=== PATIENT | female | born 1985 | race Caucasian/White ===

== ENCOUNTER → 2017-07-15 16:45 | Outpatient (CLI) | payer OTHER, SELFPAY ==
[2017-07-15 17:51] LABS: Hematocrit 35.1 % (37-47); Hemoglobin 11.8 g/dl (12.0-15.0); Mean Corp Hgb Conc 33.6 g/gl (32-36); Mean Corpuscular Hgb 32.4 pg (27.0-32.0); Mean Corpuscular Volume 96.4 fL (81-99); Mean Platelet Vol. 10.7 fl (6.2-12.0); Platelet Count 188 K/mm3 (150-450); RBC Distribution Width CV 13.3 % (11.6-14.6); RBC Distribution Width SD 46.3 fl (35.1-43.9); Red Blood Count 3.64 M/mm3 (4.2-5.4)
[2017-07-15 17:56] LABS: Scan Indicated on CBC? Y/N NO
[2017-07-15 19:13] LABS: Glucose Challenge Gest 1H 50g 90 mg/dL (70-140)
== END ==
PROVIDERS: Visit Provider Obstetrics & Gynecology
DX: Z34.82 Encounter for supervision of other normal pregnancy, second trimester (principal); Z3A.00 Weeks of gestation of pregnancy not specified
CPT/HCPCS: 82950; 85027

== ENCOUNTER → 2017-09-17 16:08 | Outpatient (CLI) | payer OTHER, SELFPAY ==
[2017-09-17 18:36] LABS: Group B Strep DNA By PCR Negative (Negative); Internal Control PASS; Probe Check PASS; Specimen Processing Control PASS
== END ==
PROVIDERS: Visit Provider Obstetrics & Gynecology
DX: Z36.85 Encounter for antenatal screening for Streptococcus B (principal)
CPT/HCPCS: 87081; 87653

== ENCOUNTER → 2017-10-08 09:30 | Outpatient (CLI) | payer OTHER, SELFPAY ==
--- NOTE | 2017-10-08 09:30 | DT_ITS ---
This patient was seen during an EMR downtime October 05, 2017 - October 12, 2017. This patient may have a combination of paper and electronic documentation or all paper documentation. All documentation is viewable within the e-chart portion of [facility] for each patient visit.
[2017-10-13 04:32] LABS: ROM Internal Control Test YES-OK TO RESULT pt. (Internal QC); ROM Patient Test Negative (Negative)
== END ==
PROVIDERS: Visit Provider Obstetrics & Gynecology
DX: Z34.83 Encounter for supervision of other normal pregnancy, third trimester (principal)
CPT/HCPCS: 84112

== ENCOUNTER 2017-10-16 09:00 | Inpatient (IN) | payer OTHER, SELFPAY ==
[2017-10-16 09:55] LABS: ROM Internal Control Test YES-OK TO RESULT pt. (Internal QC)
[2017-10-16 09:56] LABS: ROM Patient Test POSITIVE (Negative)
[2017-10-16 10:35] VITALS: BMI 33.7
[2017-10-16] MEDS: Lactated Ringers 1,000 ML 50 ML IV ×2 (12:15→22:17)
[2017-10-16 12:50] LABS: Hematocrit 37.6 % (37-47); Hemoglobin 13.1 g/dl (12.0-15.0); Mean Corp Hgb Conc 34.8 g/gl (32-36); Mean Corpuscular Hgb 32.4 pg (27.0-32.0); Mean Corpuscular Volume 93.1 fL (81-99); Mean Platelet Vol. 11.6 fl (6.2-12.0); Platelet Count 132 K/mm3 (150-450); RBC Distribution Width CV 12.8 % (11.6-14.6); RBC Distribution Width SD 43.2 fl (35.1-43.9); Red Blood Count 4.04 M/mm3 (4.2-5.4); White Blood Count 8.6 K/mm3 (4.4-11.0)
[2017-10-16 12:55] LABS: Scan Indicated on CBC? Y/N NO
[2017-10-16] MEDS: Oxytocin 30 units/NS 500 ml 30 UNITS/500 ML IV.SOLN IV (13:40)
--- NOTE | 2017-10-16 16:57 | PCM.PN.BLA ---
Progress Note LABOR PROGRESS NOTE 41 wk SROM this am approx 8:30 Sitting up in rocking chair feeling some mild menstrual cramping. AVSS Pitocin at 6 mIU/min EFM 130-140s avg variability accels. Category I tracing UCs q 2-4 mins CX deferred. last check /-3 A/P: 41 wk SPROM. Pitocin induction after SROM. Postdates. Continue induction watch progress, descent
--- NOTE | 2017-10-16 20:46 | PCM.PN.BLA ---
Progress Note LABOR PROGRESS NOTE Feeling more uncomfortable w/ UCs and having to breathe through them now. AVSS Pitocin at 7 mIU/min EFM 130-140 avg variability. Accels. UCs q 1-5 min with some coupling and spacing CX : 2-3 cm/60/-1 per RN check a few minutes ago A/P: 41 wk SROM. Pitocin induction after SROM. Continue Pitocin, position changes. Watch progress, descent.
[2017-10-16] MEDS: fentaNYL-bupivacaine (epidural) 100 ML BAG EPIDURAL (23:15)
[2017-10-17] MEDS: Lactated Ringers 1,000 ML 50 ML IV ×2 (01:09→05:51)
[2017-10-17] MEDS: fentaNYL-bupivacaine (epidural) 100 ML BAG EPIDURAL (03:42)
--- NOTE | 2017-10-17 03:53 | PCM.PN.BLA ---
Progress Note LABOR PROGRESS NOTE Comfortable with epidural AVSS Pitocin at 7 mIU/min EFM 130-140s mostly , periods of sleep cycles. Intermittent lates, but with accels and reactive strip. Category I tracing UCs q 1-4 mins Scant bloody show at perineum CX: complete with forebag. AROM, clear fluid. Pelvis adequate and AGA A/P: 41 1/7 wk EGA . SROM at approx 0830 am yesterday. Continue labor. Will labor down approx 1 hr and then begin pushing.
[2017-10-17] MEDS: Mag Hydrox/Al Hydrox/Simeth 30 ML UDC PO (05:51)
--- NOTE | 2017-10-17 06:50 | PCM.PN.BLA ---
Progress Note 41 1/7 wk SROM Induction comfortable with epidural AVSS pitocin EFM 130-140s avg variability, accels. UCs with pushing q 2-6 mins CX: C and P A/P: 41 1/7 wk SROM at 0830 am 10/16/17 now complete and pushing. Anticipate
--- NOTE | 2017-10-17 07:54 | PCM.PN.BLA ---
Progress Note Complete since 3:16 am. Pushing since approx 4:20 UCs appear inadequate. A/P: 41 1/7 wk SROM yesterday. C and P Watch for further descent, potential for C/S delivery.
[2017-10-17] MEDS: Oxytocin 30 units/NS 500 ml 30 UNITS/500 ML IV.SOLN 334 UNITS IV (08:58)
--- NOTE | 2017-10-17 09:04 | PCM.OB.VAG ---
Vaginal Delivery Maternal Presentation: Spontaneous Rupture of Membranes 41 wk EGA SROM, unfavorable cervix. Method of Induction: Pitocin Medical Reason for Induction: Premature Rupture of Membranes Amniotic Membrane Rupture Type: Spontaneous - 829 approx 10/16/[address] Rupture of Membrane time: 829 Amniotic Fluid Description: Clear Final JAIDEN: 10/09/17 Final JAIDEN Source: <20 weeks Gestational age: 41 Weeks and 1 Days Date of Procedure: 10/17/17 Pre-Operative Diagnosis: 41 1/7 wk labor Post-Operative Diagnosis: same Surgery/ Procedure Performed: Spontaneous Vaginal Delivery Anesthesiologist: Raquel Mata Type of Anesthesia: Epidural Description of Procedure: of a saucedo viable female over intact perineum. Head delivered MECHELLE. OP and nares bulb suctioned after delivery. No nuchal cord, shoulders delivered easily. Infant to maternal abdomen with spont cry, vigorous. 9/9 apgars. Cord clamped x two and cut. PP EXAM: 2nd deg posterior vaginal, perineal laceration. repaired to hemostatic, intact with 3-0 Vicryl under epidural anesthesia. 1st deg R anterior labal laceration also noted, but hemostatic and not repaired. Placenta delivered by spont expulsion, expression 3V cord, normal appearing, intact with trailing membranes. Pt and tolerated delivery well. To recovery , stable condition EBL 350 cc Ray Al counts correct x two. Presentation: Vertex, MECHELLE Placental Delivery Description: Spontaneous, Expressed Placenta Disposition: [facility] Cord Vessel Description: 3 Vessels Cord Entanglement: None Drain: Kelsey to straight drain Estimated Blood Loss: 350 A gender: Female (1 minute): 9 (5 minute): 9 Episiotomy Description: None Laceration: Midline, Perineal Extension/lac - 1st deg laceration (hemostatic and not repaired) anterior R labia, Vaginal Extension/lac, 2nd degree Medications given after delivery: IV Pitocin Complications: None
--- NOTE | 2017-10-17 09:09 | OP.PCM_ITS ---
Vaginal Delivery Maternal Presentation: Spontaneous Rupture of Membranes 41 wk EGA SROM, unfavorable cervix. Method of Induction: Pitocin Medical Reason for Induction: Premature Rupture of Membranes Amniotic Membrane Rupture Type: Spontaneous - 829 approx 10/16/[address] Rupture of Membrane time: 829 Amniotic Fluid Description: Clear Final JAIDEN: 10/09/17 Final JAIDEN Source: <20 weeks Gestational age: 41 Weeks and 1 Days Date of Procedure: 10/17/17 Pre-Operative Diagnosis: 41 1/7 wk labor Post-Operative Diagnosis: same Surgery/ Procedure Performed: Spontaneous Vaginal Delivery Anesthesiologist: Raquel Mata Type of Anesthesia: Epidural Description of Procedure: of a saucedo viable female over intact perineum. Head delivered MECHELLE. OP and nares bulb suctioned after delivery. No nuchal cord, shoulders delivered easily. Infant to maternal abdomen with spont cry, vigorous. 9/9 apgars. Cord clamped x two and cut. PP EXAM: 2nd deg posterior vaginal, perineal laceration. repaired to hemostatic , intact with 3-0 Vicryl under epidural anesthesia. 1st deg R anterior labal laceration also noted, but hemostatic and not repaired. Placenta delivered by spont expulsion, expression 3V cord, normal appearing, intact with trailing membranes. Pt and infant tolerated delivery well. To recovery , stable condition EBL 350 cc Ray Al counts correct x two. Presentation: Vertex, MECHELLE Placental Delivery Description: Spontaneous, Expressed Placenta Disposition: [facility] Cord Vessel Description: 3 Vessels Cord Entanglement: None Drain: Kelsey to straight drain Estimated Blood Loss: 350 Infant A gender: Female (1 minute): 9 (5 minute): 9 Episiotomy Description: None Laceration: Midline, Perineal Extension/lac - 1st deg laceration (hemostatic and not repaired) anterior R labia, Vaginal Extension/lac, 2nd degree Medications given after delivery: IV Pitocin Complications: None
--- NOTE | 2017-10-17 09:09 | PCM.DCVAG ---
Discharge Diet: No Restrictions Discharge Activity: May Shower, May Take a Tub Bath Return to work on:: 11/30/17 May resume sexual activity in: 4-6 weeks Additional Activity Instructions:: Nothing in the vagina for 4-6 weeks. You may return to work/school in 6 weeks. Additional Instructions: If you experience any of the following, contact your healthcare provider. Bleeding that soaks a pad every hour for 2 hours Fever 100.4 or higher Unrelieved abdominal pain Problems urinating (including inability to urinate or burning while urinating). Visual changes Severe headache Flu-like symptoms Pain or redness in one of both of your breasts Pain, warmth, tenderness or swelling in your legs, especially the calf area Frequent nausea and vomiting Symptoms of depression or anxiety If you experience any of the following, call 911 or go to the nearest Emergency Room. Chest pain Problems breathing Seizure activity Partial or complete paralysis of a body part, slurred speech, weakness or drooping of the face, or a sudden inability to walk or hold your balance Allergies/Adverse Reactions: Allergies amoxicillin Allergy (Verified 10/16/17 11:57) Rash cefaclor [From Ceclor] Allergy (Verified 10/16/17 12:04) Rash erythromycin base Allergy (Verified 10/16/17 11:57) Rash Medications to take at Discharge Ferrous Gluconate 10/16/17 Vitamins 10/16/17 Stool Softener 1 PO DAILY 10/16/17 Please Follow Up With: Denzel Calix MD - [phone] When: Call to make an appointment with your doctor in 6 weeks. Proposed Discharge Date: 10/19/17
--- NOTE | 2017-10-17 09:11 | DCINST_ITS ---
Discharge Diet: No Restrictions Discharge Activity: May Shower, May Take a Tub Bath Return to work on:: 11/30/17 May resume sexual activity in: 4-6 weeks Additional Activity Instructions:: Nothing in the vagina for 4-6 weeks. You may return to work/school in 6 weeks. Additional Instructions: If you experience any of the following, contact your healthcare provider. * Bleeding that soaks a pad every hour for 2 hours * Fever 100.4 or higher * Unrelieved abdominal pain * Problems urinating (including inability to urinate or burning while urinating) . * Visual changes * Severe headache * Flu-like symptoms * Pain or redness in one of both of your breasts * Pain, warmth, tenderness or swelling in your legs, especially the calf area * Frequent nausea and vomiting * Symptoms of depression or anxiety If you experience any of the following, call 911 or go to the nearest Emergency Room. * Chest pain * Problems breathing * Seizure activity * Partial or complete paralysis of a body part, slurred speech, weakness or drooping of the face, or a sudden inability to walk or hold your balance Allergies/Adverse Reactions: Allergies amoxicillin Allergy (Verified 10/16/17 11:57) Rash cefaclor [From Ceclor] Allergy (Verified 10/16/17 12:04) Rash erythromycin base Allergy (Verified 10/16/17 11:57) Rash Medications to take at Discharge Ferrous Gluconate 10/16/17 Vitamins 10/16/17 Stool Softener 1 PO DAILY 10/16/17 Please Follow Up With: Denzel Calix MD - [phone] When: Call to make an appointment with your doctor in 6 weeks. Proposed Discharge Date: 10/19/17
[2017-10-17] MEDS: Oxytocin 30 units/NS 500 ml 30 UNITS/500 ML IV.SOLN 167 UNITS IV (09:30)
[2017-10-17] MEDS: Prenatal Vits Tablet 1 TABLET PO (14:03)
[2017-10-17 14:30] VITALS: BP 107/57; PULSE 88; RESP 18; TEMP 36.3; O2SAT 96
[2017-10-17 16:58] VITALS: BP 103/65; PULSE 86; RESP 16; TEMP 36.3; O2SAT 96
[2017-10-17 20:35] VITALS: BP 105/60; PULSE 89; RESP 16; TEMP 36.6; O2SAT 97
[2017-10-17] MEDS: Naproxen 250 MG Tablet PO (21:40)
[2017-10-18 00:40] VITALS: BP 104/64; PULSE 74; RESP 16; TEMP 36.7
[2017-10-18 05:00] VITALS: BP 119/77; PULSE 84; RESP 16; TEMP 36.8
[2017-10-18 08:00] VITALS: BP 99/60; PULSE 69; RESP 14; TEMP 36.6; O2SAT 98
--- NOTE | 2017-10-18 08:02 | PCM.PN.OB ---
Subjective: PPD#1 Doing well. Some pain and cramping but mostly nipple discomfort. has her own cream to use and had been working with nursing staff re latching and nursing. baby up a lot last night. not nursing well yet. Pain control adequate. - Physical Exam General: Alert, Oriented x3, Cooperative, No apparent distress HEENT: Atraumatic Neck: Supple Abdomen: Soft - Fundus firm NT at inferior to umbilicus Neurological: Cranial nerves II-XII grossly intact Psych/Mental Status: Normal Affect Vital Signs Temp Pulse Resp BP Pulse Ox 98.3 F 84 16 119/77 97 10/18/17 05:00 10/18/17 05:00 10/18/17 05:00 10/18/17 05:00 10/17/17 20:35 Oxygen Delivery Method Room Air Weight: 92.079 kg Body Mass Index (BMI) 33.7 Intake and Output for Last 24 Hours 10/16/17 10/17/17 10/18/17 23:59 23:59 23:59 Intake Total 1893 / 1893 3194 / 3194 Output Total 600 / 600 3900 / 3900 Balance 1293 / 1293 -706 / -706 Medical Necessity - Tobacco Use Smoking Status: Never smoker Assessment/Plan PPD#1 Stable pp. Continue care.
[2017-10-18] MEDS: Naproxen 250 MG Tablet PO (08:59)
[2017-10-18] MEDS: Prenatal Vits Tablet 1 TABLET PO (08:59)
[2017-10-18] MEDS: Acetaminophen 500 MG Tablet 1000 MG PO (14:02)
[2017-10-18] MEDS: Senna/Docusate Sodium 1 Tablet PO (14:03)
[2017-10-18] MEDS: Bisacodyl 10 MG Suppository RECTAL (14:05)
[2017-10-18 14:25] VITALS: BP 103/64; PULSE 66; RESP 14; TEMP 36.7; O2SAT 98
[2017-10-18 19:50] VITALS: BP 110/69; PULSE 91; RESP 16; TEMP 36.7
[2017-10-19 01:15] VITALS: BP 104/62; PULSE 77; RESP 16; TEMP 36.4
--- NOTE | 2017-10-19 07:55 | PCM.PN.OB ---
Subjective: PPD#2 SROM, induction pitocin to Doing well. Breast feeding going much better. Minimal pain. no concerns voiced. Plans to make f/u appt with Dr. Perez at [facility]. Objective: Sitting up in bed, holding sleeping baby. - Physical Exam General: Alert, Oriented x3, Cooperative, No apparent distress HEENT: Atraumatic Neck: Supple Neurological: Cranial nerves II-XII grossly intact Psych/Mental Status: Normal Affect Vital Signs Temp Pulse Resp BP Pulse Ox 97.6 F L 77 16 104/62 98 10/19/17 01:15 10/19/17 01:15 10/19/17 01:15 10/19/17 01:15 10/18/17 14:25 Oxygen Delivery Method Room Air Weight: 92.079 kg Body Mass Index (BMI) 33.7 Intake and Output for Last 24 Hours 10/17/17 10/18/17 10/19/17 23:59 23:59 23:59 Intake Total 3194 / 3194 Output Total 3900 / 3900 Balance -706 / -706 Medical Necessity - Tobacco Use Smoking Status: Never smoker Assessment/Plan PPD#2 Stable pp. Dischg home today. RTO in 6 wk for pp check, with Dr. Calix.
--- NOTE | 2017-10-19 08:01 | PCM.DC.SUM ---
Discharge Date and Diagnosis Date of Admission: 10/16/17 - SROM, unfavorable cervix 41 wk Date of Discharge: 10/19/17 - Same Induction of labor Hospital Course and Treatment Summary of Care Provided: The patient is a 32 year old female at 41 wk EGA presents with SROM 8 am and unfavorable cervix . Admitted for pitocin induction. Epidural placed per pt request. Progressed to complete and pushing for a little more than 4 hrs. Delivered saucedo viable female course uneventful. Home on PPD#2 Discharge Diet: No Restrictions Discharge Activity: May Shower, May Take a Tub Bath Return to work on:: 11/30/17 May resume sexual activity in: 4-6 weeks Additional Activity Instructions:: Nothing in the vagina for 4-6 weeks. You may return to work/school in 6 weeks. Home Medications: Medications to take at Discharge Ferrous Gluconate 10/16/17 Vitamins 10/16/17 Stool Softener 1 PO DAILY 10/16/17 Other Amb Orders: Electric breast pump Time Frame: 1 Year, Location: None Selected Please Follow Up With: Denzel Calix MD - [phone] Medical Necessity - Tobacco Use Smoking Status: Never smoker Meaningful Use Info Meaningful Use Diagnoses (Choose all that apply): None applicable
[2017-10-19] MEDS: Senna/Docusate Sodium 1 Tablet PO (11:04)
[2017-10-19 11:05] VITALS: BP 102/61; PULSE 84; RESP 20; TEMP 36.9; O2SAT 95
[2017-10-19] MEDS: Prenatal Vits Tablet 1 TABLET PO (13:01)
== END 2017-10-19 15:50 | disposition home or self-care (01) | DRG 775 ==
PROVIDERS: Obstetrics & Gynecology; Admitting Provider Obstetrics & Gynecology; Visit Provider Obstetrics & Gynecology
DX: O48.0 Post-term pregnancy (principal); O70.1 Second degree perineal laceration during delivery; Z3A.41 41 weeks gestation of pregnancy; Z37.0 Single live birth
CPT/HCPCS: 59025; 59050; 84112; 85027; 86850; 86900; 99218; J7120; G0378

== ENCOUNTER 2017-12-10 10:05 | Outpatient (CLI) | payer OTHER, SELFPAY | END 2017-12-10 11:10 | disposition home or self-care (01) | LOC: WPOUT 10:12 → WP 10:13 | PROVIDERS: Visit Provider Obstetrics & Gynecology | DX: Z39.1 Encounter for care and examination of lactating mother (principal) | CPT/HCPCS: 96152 ==

== ENCOUNTER → 2018-03-17 16:03 | Outpatient (CLI) | payer OTHER, SELFPAY ==
[2018-03-22 11:38] LABS: HPV HC, High Risk Negative (Negative)
== END ==
PROVIDERS: Visit Provider Obstetrics & Gynecology
DX: Z12.4 Encounter for screening for malignant neoplasm of cervix (principal); Z12.72 Encounter for screening for malignant neoplasm of vagina
CPT/HCPCS: 87624; 88175; G0145

== ENCOUNTER → 2018-11-12 11:55 | Outpatient (CLI) | payer OTHER, SELFPAY ==
[2018-11-12 13:54] LABS: hCG Titer Quant., Serum 3129 mIU/mL (1-3)
== END ==
PROVIDERS: Visit Provider Obstetrics & Gynecology
DX: O03.9 Complete or unspecified spontaneous abortion without complication (principal)
CPT/HCPCS: 36415; 84702

== ENCOUNTER → 2018-11-15 16:17 | Outpatient (CLI) | payer OTHER, SELFPAY ==
[2018-11-15 18:08] LABS: hCG Titer Quant., Serum 162 mIU/mL (1-3)
== END ==
PROVIDERS: Visit Provider Obstetrics & Gynecology
DX: O03.9 Complete or unspecified spontaneous abortion without complication (principal); O46.90 Antepartum hemorrhage, unspecified, unspecified trimester; Z3A.00 Weeks of gestation of pregnancy not specified
CPT/HCPCS: 36415; 84702

== ENCOUNTER → 2018-12-01 16:55 | Outpatient (CLI) | payer OTHER, SELFPAY ==
[2018-12-01 18:32] LABS: hCG Titer Quant., Serum 1 mIU/mL (1-3)
== END ==
PROVIDERS: Visit Provider Obstetrics & Gynecology
DX: O02.1 Missed abortion (principal)
CPT/HCPCS: 36415; 84702

== ENCOUNTER 2021-06-12 19:00 | Inpatient (IN) | payer OTHER, SELFPAY ==
[2021-06-12 20:03] VITALS: BMI 38.2
[2021-06-12 20:09] LABS: Absolute Lymphocyte Count 1.51 X10^3/uL (0.83-4.51); Absolute Neutrophil Count 6.2 X10^3/uL (2.0-7.7); Basophil# 0.03 X10^3/uL; Basophil% 0.4 % (0-1); Eosinophil# 0.16 X10^3/uL; Eosinophils% 1.9 % (0-5); Hemoglobin 13.8 g/dL (12.0-15.0); Lymphocyte # 1.51 X10^3/ul (0.83-4.51); Mean Corp Hgb Conc 36.3 g/dL (32-36); Mean Corpuscular Hgb 33.7 pg (27.0-32.0); Mean Corpuscular Volume 92.7 fL (81-99); Monocyte# 0.45 X10^3/uL; Monocyte% 5.4 % (0-10); NRBC Flagged by Analyzer 0 % (0-5); Neutrophil # 6.17 X10^3/uL (2.7-7.7); Neutrophil % 73.5 % (47-70); Platelet Count 155 K/mm3 (150-450); RBC Distribution Width SD 43.2 fl (35.1-43.9); White Blood Count 8.4 K/mm3 (4.4-11.0)
[2021-06-12 21:05] VITALS: BP 124/73; PULSE 72; TEMP 36.3
--- NOTE | 2021-06-12 21:09 | HP.PCM.OB_ITS ---
HPI - General General Date of Admission: 06/12/21 HPI Narrative ALTHEA CONNER, is a 35 F who presents for an elective IOL. Maternal Data Information JAIDEN Calculator Estimated Delivery Date Method Current WG Current Estimate 06/07/21 LMP (Certain) 40w 5d PFSH PFSH Medical History (Updated 06/12/21 @ 21:[address] Shauna Thomas, DO) Anxiety Depression depression Home Medications Ferrous Gluconate 324 mg QODAY 10/16/17 [History Last Taken 06/11/21 08:00] Vitamins 1 tab DAILY 10/16/17 [History Last Taken 06/12/21 08:00] Stool Softener 1 tab PO DAILY 10/16/17 [History Last Taken 06/12/21 08:00] Pepcid 20 mg DAILY 06/12/21 [History Last Taken 06/12/21 08:00] Zyrtec 10 mg DAILY 06/12/21 [History Last Taken 06/12/21 08:00] Allergy/AdvReac Type Severity Reaction Status Date / Time amoxicillin Allergy Rash Verified 06/12/21 19:36 cefaclor [From Ceclor] Allergy Rash Verified 06/12/21 19:36 erythromycin base Allergy Rash Verified 06/12/21 19:36 Surgical History (Updated 06/12/21 @ 20:37 by Fabiana Patterson) [facility] teeth extracted Social History Smoking Status: Never smoker History Elective abortions Hx Para 1 Spontaneous abortions Hx # Term Pregnancies Ectopic pregnancies Hx # Pregnancies Multiple births # of living children NST FHR Rate Baby A FHR Category:: Category I Vital Signs Vital Signs Vital Signs: 06/12/21 21:05 Temperature 97.3 F L Pulse Rate 72 Blood Pressure 124/73 H BP Systolic 124 BP Diastolic 73 Weight Weight: 223 lb 1.725 oz Body Mass Index (BMI) 38.2 Labs Labs Labs: Blood Type A POSITIVE Antibody Screen NEGATIVE Hct 38.0 % (37-47) Hgb 13.8 g/dL (12.0-15.0) Rubella IgG Antibody 13.0 IU/mL Hep Bs Antigen Negative (Negative) C.trachomatis DNA (PCR) Negative (Negative) Glucose 1 Hr 50 gm 90 mg/dL (70-140) Group B Strep DNA Negative (Negative) Rhogam given: No Assessment & Plan (1) 40 weeks gestation of : PLAN: - Admit for routine intrapartum care - Cvx 3 cm on admission, start pit gtt per protocol - Epidural PRN - GBS negative - EFW expected to be < 4500 g and pelvis adequate - Anticipate vaginal delivery (2) Elective induction of labor planned: (3) History of depression:
[2021-06-12] MEDS: Lactated Ringers 1,000 ML 50 ML IV (21:13)
[2021-06-12] MEDS: 0.9% Saline Lock 10 ML Syringe IV (21:13)
[2021-06-12] MEDS: Oxytocin 30 units/NS 500 ml 30 UNITS/500 ML IV.SOLN IV (21:21)
[2021-06-12 22:31] VITALS: TEMP 36.9
[2021-06-12 22:32] VITALS: BP 112/68; PULSE 75; O2SAT 98
[2021-06-12 23:32] VITALS: BP 112/72; PULSE 80; TEMP 36.7
[2021-06-13] VITALS (45 sets, daily range): BP systolic 94–119; BP diastolic 55–77; PULSE 60–87; RESP 16; TEMP 36.3–37.3; O2SAT 98–100
[2021-06-13] MEDS: Lactated Ringers 500 ML 999 ML IV (07:04)
[2021-06-13] MEDS: fentaNYL-bupivacaine (epidural) 100 ML BAG EPIDURAL (08:02)
--- NOTE | 2021-06-13 08:14 | PCM.PN.BLA ---
Progress Note Patient seen at bedside. Just had epidural placed. Minimal relief at this time. Physical Exam Const alert and no apparent distress General Appearance: cooperative and comfortable Exam Limitations: no limitations HEENT normocephalic Eyes General Eye: normal appearance of both eyes Neck full ROM General: normal visual inspection Chest Chest: symmetrical chest wall rise Resp normal respiratory effort and normal air movement Effort and Inspection: symmetric chest movement Auscultation: clear to auscultation bilaterally Cardio regular rate and regular rhythm GI normal to inspection, nondistended, normoactive bowel sounds Back/Spine normal ROM Extremity full ROM and no calf tenderness General Extremity: normal exam except as noted Skin no rashes or lesions noted Neuro CN's II-XII intact bilaterally Psych mental status grossly normal Assessment & Plan Assessment/Plan (1) Elective induction of labor planned: (2) 40 weeks gestation of : (3) History of depression: PLAN: CE- /-2 Cat. 1 tracing, NST Reactive Pitocin 20 mu/min Continues to leak clear fluid Anticipate
[2021-06-13] MEDS: Oxytocin 30 units/NS 500 ml 30 UNITS/500 ML IV.SOLN 999 UNITS IV (08:49)
--- NOTE | 2021-06-13 08:57 | EX.PCM.OBRPT ---
Assessment & Plan (1) (spontaneous vaginal delivery): (2) Laceration, obstetrical, first degree: Maternal Data Information JAIDEN Calculator Estimated Delivery Date Method Current WG Current Estimate 06/07/21 LMP (Certain) 40w 6d Vaginal Delivery Maternal Presentation Maternal Presentation: Elective Induction Maternal Presentation: Patient at 40.5 weeks gestation for elective induction of labor. Type of Induction: Pitocin and Amniotomy Operative Information Date of Procedure: 06/13/21 Pre-Operative Diagnosis: Term gestation, elective induction of labor Post-Operative Diagnosis: Same, live female Surgery / Procedure Performed: Spontaneous Vaginal Delivery Type of Anesthesia: Epidural Estimated Blood Loss: 350 Time of Delivery: 08:46 Findings Description of Procedure: Called to patient's room due to complete dilation and patient feeling pressure. Patient straight cath for 450cc urine. Provided support through pushing. With minimal effort, infant head delivered. Loose nuchal cord easily reduced and with next push anterior shoulder followed by posterior shoulder and remainder of delivered. Vigorous female placed on maternal abdomen. Pitocin IV started for active management of the third stage of labor. 3 vessel cord clamped and cut by FOB after 3 minute delay. Infant placed immediately skin to skin with patient. Placenta delivered spontaneously and intact. Fundus firm at 2 below U. Small 1st degree laceration noted with no active bleeding. Discussed with patient and decision made to not suture. Hemostasis obtained. EBL 330 cc. APGARS 9/9. Infant an patient bonding at this time. Dr. Villa notified of delivery. Presentation: MECHELLE Amniotic Membrane Rupture Type: Artificial Amniotic Fluid Description: Clear Placental Delivery Description: Spontaneous Placenta Disposition: [facility] Cord Vessel Description: 3 Vessels Cord Entanglement: Around neck x 1, loose Nuchal Cord Compression: Without compression Infant A Gender: Female (1 minute): 9 (5 minute): 9 Delayed Cord Clamping: Yes Post Vaginal Delivery Medications Given After Delivery: IV Pitocin Episiotomy Description: None Laceration: 1st degree (No repair) Complication Complications: None
[2021-06-13] MEDS: Senna/Docusate Sodium 1 Tablet PO (13:43)
[2021-06-13] MEDS: Acetaminophen 500 MG Tablet 1000 MG PO (13:43)
[2021-06-13] MEDS: Ibuprofen 600 MG Tablet PO (18:04)
[2021-06-14] VITALS (9 sets, daily range): BP systolic 103–120; BP diastolic 53–75; PULSE 73–84; RESP 16–18; TEMP 36.2–36.6
[2021-06-14] MEDS: Acetaminophen 500 MG Tablet 1000 MG PO (00:41)
--- NOTE | 2021-06-14 07:05 | PCM.PN.OB ---
Subjective Subjective Patient seen at bedside. Feeling good. Lochia decreased. Ambulating and voiding without difficulty. without difficulty. Desires discharge home today. Objective Data Objective Data Vital Signs: Vital Signs Temp Pulse Resp BP Pulse Ox 97.9 F 74 16 120/60 98 06/14/21 03:43 06/14/21 03:43 06/14/21 03:43 06/14/21 03:43 06/13/21 16:25 Oxygen Delivery Method Room Air Weight: 223 lb 1.725 oz Body Mass Index (BMI) 38.2 Intake & Output: Intake and Output for Last 24 Hours 06/12/21 06/13/21 06/14/21 23:59 23:59 23:59 Intake Total 7.57 / 7.57 1872.00 / 1872.00 Output Total 1700 / 1700 Balance 7.57 / 7.57 172.00 / 172.00 Lab / Micro Data Result Diagrams: 06/12/21 19:50 Micro: Microbiology 06/12/21 20:05 Nasal Secretion SARS-CoV-2 Antigen (Rapid) - Final ROS Eyes Eyes: Denies blurry vision, change in vision or spots in vision ENT HEENT: Denies dizziness or headache(s) Cardiovascular Cardiovascular: Denies abdominal pain, chest pain or dyspnea Respiratory/Chest Respiratory/Chest: Denies cough, dyspnea, shortness of breath at rest or shortness of breath with exertion Gastrointestinal Gastrointestinal: Denies abdominal pain, diarrhea or vomiting Genitourinary Genitourinary: Denies change in urinary stream, difficulty urinating or dysuria Musculoskeletal Musculoskeletal: Reports none Integumentary Integumentary: Denies rash Neurologic Neurologic: Denies dizziness, headache(s), memory loss or weakness Physical Exam Const alert and no apparent distress General Appearance: cooperative and comfortable Exam Limitations: no limitations HEENT normocephalic Eyes General Eye: normal appearance of both eyes Neck full ROM General: normal visual inspection Chest Chest: symmetrical chest wall rise Resp normal respiratory effort and normal air movement Effort and Inspection: symmetric chest movement Auscultation: clear to auscultation bilaterally Cardio regular rate and regular rhythm GI normal to inspection, nondistended, normoactive bowel sounds Back/Spine normal ROM Extremity full ROM and no calf tenderness General Extremity: normal exam except as noted Skin no rashes or lesions noted Neuro CN's II-XII intact bilaterally Psych mental status grossly normal Assessment & Plan (1) Laceration, obstetrical, first degree: (2) (spontaneous vaginal delivery): PLAN: PPD 1 Routine care Pain control support Discharge home with follow up in office
--- NOTE | 2021-06-14 07:08 | DCINST_ITS ---
Discharge Instructions Diet Discharge Diet: No restrictions Activity May resume sexual activity in: 6-8 weeks Weight Bearing Status: Weight bearing as tolerated Dressing / Incision Call your doctor if you observe: Fever of 101 or Higher, Inability to urinate, Using more than 1 pad per hour, Shortness of breath, Chest pain, Calf discomfort and Uncontrolled pain Follow Up Care When: 2 weeks virtual visit/ 6 weeks in office Test Results: Test results from this visit will be discussed in further detail at your follow-up appointment, if applicable. Discharge Plan Admission Admit Date/Time: 06/12/21 19:00 Primary Reason for Your Visit: Labor and Delivery Attending Provider: Anabella Reeves Primary Care Provider: Dolly Valle NP Consulting Providers: Shauna Thomas Discharge Orders/Prescriptions Prescriptions: No Action Stool Softener 1 tab PO DAILY RF: 0 Ferrous Gluconate 324 mg QODAY RF: 0 Vitamins 1 tab DAILY RF: 0 Pepcid 20 mg DAILY RF: 0 Zyrtec 10 mg DAILY RF: 0 Referrals / Follow Up: Dolly Valle CHEMICAL PRODUCTION TECHNICIAN, CHEMICAL PRODUCTION TECHNICIAN-C [Primary Care Provider] - Disposition Disposition (needs filled in before D/C Order can be placed): Home, Self Care
[2021-06-14] MEDS: Ibuprofen 600 MG Tablet PO (14:55)
[2021-06-14] MEDS: Senna/Docusate Sodium 1 Tablet PO (14:55)
== END 2021-06-14 16:25 | disposition home or self-care (01) | DRG 807 ==
PROVIDERS: Obstetrics & Gynecology; Admitting Provider Advanced Practice Midwife; PCP Nurse Practitioner Family; Visit Provider Advanced Practice Midwife
DX: O69.81X0 Labor and delivery complicated by cord around neck, without compression, not applicable or unspecified (principal); Z37.0 Single live birth; Z3A.40 40 weeks gestation of pregnancy
CPT/HCPCS: 59025; 59050; 85025; 86850; 86900; 86901; 87426; 99218; J7120; A4216; G0378